=== PATIENT | female | born 1970 | race African-American/Black ===

== ENCOUNTER 2019-05-02 23:53 | Emergency (ER) | payer OTHER ==
[~2019-05-02] VITALS: Ht 162.6 cm; Wt 78.0 kg
[2019-05-03 00:51] VITALS: BP 125/73
== END 2019-05-03 01:22 | disposition left against medical advice (07) ==
LOC: ER 23:59
DX: R07.89 Other chest pain (principal); I50.9 Heart failure, unspecified
CPT/HCPCS: 93005; 99283; Z7610

== ENCOUNTER 2025-09-19 19:09 | Emergency (ER) | payer OTHER ==
[~2025-09-19] VITALS: Ht 162.6 cm; Wt 73.2 kg
[2025-09-19 19:45] VITALS: BP 134/73; PULSE 78; RESP 14; TEMP 37; O2SAT 100
[2025-09-19] MEDS ORDERED: IBUP-1455 MT (21:41)
== END 2025-09-19 21:59 | disposition home or self-care (01) ==
LOC: ER 19:09
DX: M79.604 Pain in right leg (principal); I50.9 Heart failure, unspecified; Z98.51 Tubal ligation status
CPT/HCPCS: 99283

== ENCOUNTER 2025-09-25 19:02 | Emergency (ER) | payer OTHER ==
[~2025-09-25] VITALS: Ht 162.6 cm; Wt 53.0 kg
[~2025-09-25 19:02] MED LIST: IBUP-1455 MT
[2025-09-25 19:10] VITALS: O2SAT 100
[2025-09-25] MEDS: ACETAMINOPHEN 500MG TABLET PO ONE (20:50)
[2025-09-25] MEDS: METOCLOPRAMIDE HCL 10MG TABLET PO ONE (20:50)
[2025-09-25] MEDS ORDERED: NAPR-1176 MT (21:36)
[2025-09-25 22:05] VITALS: BP 123/70; PULSE 67; RESP 18; TEMP 36.7; O2SAT 100
== END 2025-09-25 22:10 | disposition home or self-care (01) ==
LOC: ER 19:02
DX: S00.83XA Contusion of other part of head, initial encounter (principal); Z79.1 Long term (current) use of non-steroidal anti-inflammatories (NSAID); Z86.73 Personal history of transient ischemic attack (TIA), and cerebral infarction without residual deficits; W01.0XXA Fall on same level from slipping, tripping and stumbling without subsequent striking against object, initial encounter; Y93.01 Activity, walking, marching and hiking; Y92.89 Other specified places as the place of occurrence of the external cause; Y99.8 Other external cause status
CPT/HCPCS: 99284; J8597